=== PATIENT | female | born 1995 | race Caucasian/White ===

== ENCOUNTER 2017-12-15 17:46 | Emergency (ER) | payer MEDICAID ==
[~2017-12-15] VITALS: Ht 162.6 cm; Wt 93.9 kg
[2017-12-15 17:51] VITALS: BP 143/77
[2017-12-15] MEDS ORDERED: cefTRIAXone 1,000 MG VIAL ONE (20:32)
[2017-12-15] MEDS: cefTRIAXone 1,000 MG in LIDOCAINE MPF 1% - **ER/OR** 2.1 ML IM ONE (20:36)
[2017-12-15 20:53] VITALS: BP 125/75
[2017-12-17 06:19] LABS: CHLAMYDIA TRACHOMATIS AMP DNA Negative (Negative)
== END 2017-12-15 20:57 | disposition home or self-care (01) ==
LOC: MED 17:46
DX: N76.0 Acute vaginitis (principal)
CPT/HCPCS: 36415; 87070; 87210; 87491; 96372; 99284; J0696; 99283